=== PATIENT | female | born 1995 | race Asian ===

== ENCOUNTER 2018-10-09 17:06 | Emergency (ER) | payer OTHER ==
[~2018-10-09] VITALS: Ht 167.6 cm; Wt 59.0 kg
[2018-10-09 17:13] VITALS: Ht 167.6 cm; Wt 59.0 kg
[2018-10-09 19:03] VITALS: BP 110/62
== END 2018-10-09 19:03 | disposition home or self-care (01) ==
LOC: ED 17:06
DX: S30.1XXA Contusion of abdominal wall, initial encounter (principal); W50.1XXA Accidental kick by another person, initial encounter; Y93.89 Activity, other specified; Y92.89 Other specified places as the place of occurrence of the external cause; Y99.8 Other external cause status